=== PATIENT | male | born 1980 | race African-American/Black ===

== ENCOUNTER 2019-06-12 12:13 | Emergency (ER) | payer OTHER ==
[~2019-06-12] VITALS: Ht 188 cm; Wt 147.9 kg
[~2019-06-12 12:13] MED LIST: ATOR40TA59 PO; CLON0.1T PO; HALO10TA PO; INSU100I11 SQ; INSU100I13 SQ; LISI-130 PO; METF500T16 PO; MIRT15TA3 PO; NYST100054 SWSW; Pantoprazole PO; SERT100T PO
[2019-06-12 13:22] VITALS: BP 135/97
[2019-06-12] MEDS ORDERED: guaiFENesin/CODEINE 100mg/10mg 5 ML LIQUID PO STA (13:38)
[2019-06-12] MEDS ORDERED: IPRATRPIUM/ALBUTEROL 0.5/2.5MG 3 ML NEBU. NEB ONE (13:45)
[2019-06-12] MEDS ORDERED: BENZONATATE 100 MG CAPSULE. PO ONE (13:45)
[2019-06-12] MEDS ORDERED: predniSONE 20 MG TABLET PO ONE (13:45)
--- NOTE | 2019-06-12 13:54 | RAD ---
Chest, PA and Lateral: Technique: PA and lateral views of the chest were obtained. History: Cough. Comparison: None. Findings: The heart and pulmonary vasculature appear within normal limits. The lungs are clear. The pleural margins are clear. Impression: No acute chest process is seen. Electronically signed by: Walter Strickland MD (06/12/2019 1:51 PM) [facility]
[2019-06-12] MEDS ORDERED: BENZ100C PO (14:26)
[2019-06-12] MEDS ORDERED: ALBU2.5V8 INH (14:26)
[2019-06-12] MEDS ORDERED: PRED50TA PO (14:26)
--- NOTE | 2019-06-12 14:26 | PHYS DOC ---
Past Medical History Past Medical History: Anxiety, Bipolar, Diabetes-Type II, High Cholesterol, Seizure, Schizophrenia Past Surgical History: No Surgical History Alcohol Use: None Drug Use: None Adult General Chief Complaint Chief Complaint: COUGH HPI HPI Patient is a 38 year old male with history of diabetes type 2, hypertension, high cholesterol, smoking, anxiety among other illnesses who presents to the ED today complaining of bad productive cough intermittently since January 2018. Denies any fever. Review of Systems Review of Systems Constitutional: Denies fever or chills [] Eyes: Denies change in visual acuity, redness, or eye pain [] HENT: Denies nasal congestion or sore throat [] Respiratory: Reports cough, denies shortness of breath [] Cardiovascular: No additional information not addressed in HPI [] GI: Denies abdominal pain, nausea, vomiting, bloody stools or diarrhea [] : Denies dysuria or hematuria [] Musculoskeletal: Denies back pain or joint pain [] Integument: Denies rash or skin lesions [] Neurologic: Denies headache, focal weakness or sensory changes [] All other systems were reviewed and found to be within normal limits, except as documented in this note. Current Medications Current Medications Current Medications Medications (Trade) Dose Ordered Sig/Fabi Start Time Stop Time Status Last Admin Dose Admin Albuterol/ Ipratropium (Duoneb) 3 ml 1X ONCE 06/12/19 13:45 06/12/19 13:46 DC 06/12/19 13:54 3 ML Benzonatate (Tessalon Perle) 100 mg 1X ONCE 06/12/19 13:45 06/12/19 13:46 DC 06/12/19 13:47 100 MG Guaifenesin/ Codeine Phosphate (Robitussin Ac) 5 ml 1X STAT 06/12/19 13:38 06/12/19 13:42 DC 06/12/19 14:09 5 ML Prednisone (Prednisone) 60 mg 1X ONCE 06/12/19 13:45 06/12/19 13:46 DC 06/12/19 13:47 60 MG Allergies Allergies Allergies Coded Allergies Type Severity Reaction Last Updated Verified No Known Drug Allergies 04/08/18 No Physical Exam Physical Exam Constitutional: Well developed, well nourished, no acute distress, non-toxic appearance. [] HENT: Normocephalic, atraumatic, bilateral external ears normal, oropharynx moist, no oral exudates, nose normal. [] Eyes: PERRLA, EOMI, conjunctiva normal, no discharge. [] Neck: Normal range of motion, no tenderness, supple, no stridor. [] Cardiovascular:Heart rate regular rhythm, no murmur [] Lungs & Thorax: Bilateral breath sounds clear to auscultation [] Abdomen: Bowel sounds normal, soft, no tenderness, no masses, no pulsatile masses. [] Skin: Warm, dry, no erythema, no rash. [] Back: No tenderness, no CVA tenderness. [] Extremities: No tenderness, no cyanosis, no clubbing, ROM intact, no edema. [] Neurologic: Alert and oriented X 3, normal motor function, normal sensory function, no focal deficits noted. [] Psychologic: Affect normal, judgement normal, mood normal. [] Current Patient Data Vital Signs Vital Signs Date Time Temp Pulse Resp B/P (MAP) Pulse Ox O2 Delivery O2 Flow Rate FiO2 06/12/19 13:55 95 Room Air 06/12/19 13:22 98.1 95 18 135/97 (110) 98.1 EKG EKG [] Radiology/Procedures Radiology/Procedures []PROCEDURE: CHEST PA & LATERAL Chest, PA and Lateral: Technique: PA and lateral views of the chest were obtained. History: Cough. Comparison: None. Findings: The heart and pulmonary vasculature appear within normal limits. The lungs are clear. The pleural margins are clear. Impression: No acute chest process is seen. Electronically signed by: Walter Strickland MD (06/12/2019 1:51 PM) [facility] DICTATED and SIGNED BY: WALTER STRICKLAND MD DATE: 06/12/19 1354 Course & Med Decision Making Course & Med Decision Making Pertinent Labs and Imaging studies reviewed. (See chart for details) This is a 38-year-old male patient with history of smoking presenting to the ED today with a cough that began January 2018. Chest x-ray interpreted by radiologist as negative for any acute findings. Symptoms are likely bronchitis, encouraged to consider smoking cessation. Supportive care measures provided. Discharged to home. Dragon Disclaimer Dragon Disclaimer This electronic medical record was generated, in whole or in part, using a voice recognition dictation system. Departure Departure Impression: Primary Impression: Acute bronchitis Additional Impression: Smoking addiction Disposition: HOME, SELF-CARE Condition: STABLE Referrals: NO PCP (PCP) Follow-up with your own doctor in 1-2 weeks Patient Instructions: Acute Bronchitis, Smoking Cessation, Tips For Success Additional Instructions: You were evaluated in the emergency room with symptoms consistent of bronchitis, consider smoking cessation. Use the prescribed medications as ordered and follow-up with your doctor in 1-2 weeks. Scripts Albuterol Sulfate (Proair Hfa) 8.5 Gm Hfa.aer.ad 1 PUFF INH PRN Q6HRS PRN for SHORTNESS OF BREATH, #1 INHALER Prov: CELESTINE BEAVERS APRN 06/12/19 Prednisone (PREDNISONE) 50 Mg Tablet 1 TAB PO DAILY, #5 TAB Prov: CELESTINE BEAVERS APRN 06/12/19 Benzonatate (TESSALON PERLE) 100 Mg Capsule 1 CAP PO TID, #30 CAP Prov: CELESTINE BEAVERS APRN 06/12/19 Problem Qualifiers Primary Impression: Acute bronchitis Bronchitis organism: unspecified organism Qualified Codes: J20.9 - Acute bronchitis, unspecified CELESTINE BEAVERS APRN Jun 12, 2019 14:26
== END 2019-06-12 14:32 | disposition home or self-care (01) ==
LOC: ER 12:13
DX: J20.9 Acute bronchitis, unspecified (principal); F17.200 Nicotine dependence, unspecified, uncomplicated; F31.9 Bipolar disorder, unspecified; E11.9 Type 2 diabetes mellitus without complications; E78.00 Pure hypercholesterolemia, unspecified; F20.9 Schizophrenia, unspecified; I10 Essential (primary) hypertension
CPT/HCPCS: 71046; 94640; 99284; J7512; J7620